=== PATIENT | male | born 1975 | race Asian ===

== ENCOUNTER 2022-09-11 04:22 | Day surgery (SDC) | payer BC ==
[2022-09-07 12:48] VITALS: BMI 25.0
[2022-09-11 12:04] VITALS: TEMP 97.7
[2022-09-11 15:43] VITALS: BP 100/56; PULSE 58; RESP 18
== END 2022-09-11 13:00 | disposition home or self-care (01) ==
LOC: JASU-ENDO 04:22
PROVIDERS: ATTEND Student in an Organized Health Care Education/Training Program
PROC: 0DBP8ZX Excision of Rectum, Via Natural or Artificial Opening Endoscopic, Diagnostic (ICD-10-PCS; principal; 2022-09-11 11:30)
DX: Z12.11 Encounter for screening for malignant neoplasm of colon (principal); D12.8 Benign neoplasm of rectum
CPT/HCPCS: 88305-TC